=== PATIENT | female | born 1995 | race Caucasian/White ===

== ENCOUNTER 2017-04-16 20:38 | Emergency (ER) | payer BC ==
[2017-04-16 21:14] VITALS: BP 118/77
--- NOTE | 2017-04-16 21:32 | ED ---
Throat Pain/Nasal Congestion - HPI Summary HPI Summary: 22 yr old female with the complaint of left ear pain. Onset early evening today , and got progressively worse. She put drops in her left ear that her grandmother gave her, and she lay down and then had some bloody discharge/fluid come out of the ear. She states her hearing in the left ear is a little like she is under water. She has had URI symptoms the past few days preceeding this. - History of Current Complaint Chief Complaint: UCEar Time Seen by Provider: 04/16/17 21:20 - Allergies/Home Medications Allergies/Adverse Reactions: Allergies Allergy/AdvReac Type Severity Reaction Status Date / Time No Known Allergies Allergy Verified 04/16/17 21:14 Home Medications: Home Medications Acetaminophen [APAP] 650 mg PO 04/16/17 [History] Medroxyprogesterone Acetate [Depo-Provera Contraceptiv] 150 mg IM 04/16/17 [ History] PMH/Surg Hx/FS Hx/Imm Hx EENT History: Reports: Other - may ear infections, left ear in the past - Surgical History Surgery Procedure, Year, and Place: wisdom teeth extraction Infectious Disease History: No Infectious Disease History: Denies: Traveled Outside the [place] in Last 30 Days - Family History Known Family History: Positive: None - Social History Alcohol Use: Occasionally Substance Use Type: Reports: None Smoking Status (MU): Never Smoked Tobacco Review of Systems Constitutional: Negative Positive: Ear Ache All Other Systems Reviewed And Are Negative: Yes Physical Exam Triage Information Reviewed: Yes Vital Signs On Initial Exam: Initial Vitals Temp Pulse Resp BP Pulse Ox 98.1 F 77 18 118/77 100 04/16/17 21:08 04/16/17 21:08 04/16/17 21:08 04/16/17 21:08 04/16/17 21:08 Vital Signs Reviewed: Yes Appearance: Positive: Well-Appearing, No Pain Distress Skin: Positive: Warm, Skin Color Reflects Adequate Perfusion Head/Face: Positive: Normal Head/Face Inspection Eyes: Positive: EOMI ENT: Positive: Pharynx normal, TM red - left with effusion. She has scaring to the left TM. No rupture seen. The ear is red in patches diffusely with fluid. Neck: Positive: Supple, Nontender Respiratory/Lung Sounds: Positive: Clear to Auscultation, Breath Sounds Present Cardiovascular: Positive: RRR. Negative: Murmur Musculoskeletal: Positive: Strength/ROM Intact Neurological: Positive: Sensory/Motor Intact, Alert, Oriented to Person Place, Time, CN Intact II-III Psychiatric: Positive: Normal - [place] Coma Scale Best Eye Response: 4 - Spontaneous Best Motor Response: 6 - Obeys Commands Best Verbal Response: 5 - Oriented Coma Scale Total: 15 Diagnostics - Vital Signs Vital Signs Temp Pulse Resp BP Pulse Ox 04/16/17 21:08 98.1 F 77 18 118/77 100 - Laboratory Lab Statement: Any lab studies that have been ordered have been reviewed, and results considered in the medical decision making process. EENT Course/Dx - Course Course Of Treatment: 22 yr old with OM. Plan dc home on augmentin and will add ciprodex as well. - Diagnoses Provider Diagnoses: Otitis media Discharge - Discharge Plan Condition: Good Disposition: HOME Prescriptions: Amoxicillin/Clavulanate TAB* [Augmentin TAB 875*] 875 mg PO BID #20 tab Ciproflox/Dexameth OTIC.SUSP* [Ciprodex OTIC.SUSP*] 4 drop LEFT EAR BID #1 btl Patient Education Materials: Ear Infection (ED) Referrals: No Primary Care Phys,NOPCP [Primary Care Provider] - Elio Celaya MD [Medical Doctor] -
[2017-04-16] MEDS ORDERED: Amoxicillin/Clavulanate TAB* 875 MG PO ONE (21:33)
[2017-04-16] MEDS ORDERED: Ibuprofen TAB* 400 MG PO ONE (21:38)
== END 2017-04-16 21:45 | disposition home or self-care (01) ==
LOC: UCCORT 20:38
DX: H66.92 Otitis media, unspecified, left ear (principal)
CPT/HCPCS: 99202; A9270-GY; G0463